=== PATIENT | female | born 1990 | race Caucasian/White ===

== ENCOUNTER 2019-01-05 09:51 | Emergency (ER) | payer OTHER ==
[2019-01-05] MEDS ORDERED: Bupivacaine 0.5% 10 ML SDV INJECT ONE (10:54)
[2019-01-05] MEDS ORDERED: Diphtheria,Pertussis(Acell),Tetanus Vaccine 0.5 ML Syringe IM ONE (10:56)
--- NOTE | 2019-01-05 11:01 | CR ---
Left hand: Four views of the left hand were obtained. Comparison: No previous study. Soft tissue injury is seen with distal left third finger. Comminuted fracture is noted within the tuft of the distal third finger with mild angulation and displacement. No proximal abnormality is seen within this finger. Other portions of the left hand exam appear within normal limits. Impression: 1. Fracture and soft tissue injury within the distal right third finger. Diagnostic code #3
--- NOTE | 2019-01-05 11:07 | EDM.PDOC ---
ED HPI GENERAL MEDICAL PROBLEM - General Chief Complaint: Laceration Stated Complaint: LT MIDDLE FINGER LAC Time Seen by Provider: 01/05/19 10:55 Source of Information: Reports: Patient History Limitations: Reports: No Limitations - History of Present Illness INITIAL COMMENTS - FREE TEXT/NARRATIVE: 20-year-old female presents to the ED for evaluation of work related injury to the distal aspect of her third finger. She reports that about 0630 hrs. this morning central standard time she had a heavy 400 pound weight drop on her left left hand. She suffered a injury to the distal aspect of her left third finger. She continued working until the end of her shift and then elected to come into the ED for care. She drove down from [facility]. He is right-hand dominant. Dodie when her last tetanus toxoid was updated. Onset: Today Onset Date: 01/05/19 Onset Time: 06:30 Duration: Hour(s): Location: Reports: Upper Extremity, Left (Distal aspect of the left third finger.) Quality: Reports: Ache, Throbbing Severity: Moderate Improves with: Reports: None Worsens with: Reports: None Context: Reports: Trauma (Blunt force trauma by heavyweight dropping on her gloved left hand.). Denies: Activity, Exercise, Lifting, Sick Contact Associated Symptoms: Reports: No Other Symptoms Treatments SHANK MAKER: Reports: Other (see below) Left Finger-Middle Pain Score (Numeric/FACES): 8 - Related Data Allergies Allergy/AdvReac Type Severity Reaction Status Date / Time No Known Allergies Allergy Verified 01/05/19 10:18 Home Meds: Home Meds Devyn. 1 tab PO DAILY 01/05/19 [History] Doxycycline [Vibramycin] 100 mg PO BID #24 cap 01/05/19 [Rx] lamoTRIgine [Lamictal] 200 mg PO DAILY 01/05/19 [History] Past Medical History Genitourinary History: Reports: UTI, Recurrent Psychiatric History: Reports: Bipolar (Controlled with Lamictal.) Social & Family History - Tobacco Use Smoking Status *Q: Current Every Day Smoker Years of Tobacco use: 10 Packs/Tins Daily: 0.5 - Caffeine Use Caffeine Use: Reports: Coffee - Recreational Drug Use Recreational Drug Use: No - Living Situation & Occupation Living situation: Reports: Single Occupation: Employed ED ROS GENERAL - Review of Systems Review Of Systems: See Below Constitutional: Reports: No Symptoms HEENT: Reports: No Symptoms Respiratory: Reports: No Symptoms Cardiovascular: Reports: No Symptoms Endocrine: Reports: No Symptoms GI/Abdominal: Reports: No Symptoms : Reports: No Symptoms Musculoskeletal: Reports: Other (Acute injury to the distal aspect of her left third finger.) Skin: Reports: No Symptoms ( See history of present illness) Neurological: Reports: No Symptoms Psychiatric: Reports: Mood Lability (Patient has a history of bipolar affective disorder well controlled on Lamictal 200 mg daily daily), Other Hematologic/Lymphatic: Reports: No Symptoms Immunologic: Reports: No Symptoms ED EXAM, SKIN/RASH Exam: See Below Exam Limited By: No Limitations General Appearance: Alert, WD/WN, No Apparent Distress Eye Exam: Bilateral Eye: Normal Inspection Respiratory/Chest: No Respiratory Distress, Lungs Clear, Normal Breath Sounds, Chest Non-Tender Cardiovascular: Normal Peripheral Pulses, Regular Rate, Rhythm, No Edema, No Gallop, No Murmur, No Rub Peripheral Pulses: 3+: Radial (L), Radial (R) Extremities: Other (Examination was limited to the left hand. Patient has an obvious injury to her left distal third finger. The nail has been avulsed from the nailbed and the finger is in a flexed position. Patient has no ability to fully extend the finger. She has full sensation in the tip of the finger both ulnar and radial aspects. There are no significant lacerations around the nailbed. There is blood on the other fingers but they are not injured.) Neurological: Alert, Oriented, CN II-XII Intact, Normal Cognition Psychiatric: Normal Affect, Normal Mood Skin: Warm, Dry, Intact, Normal Color, No Rash ED SKIN PROCEDURES - Laceration/Wound Repair Left Distal Digit - 3rd (Middle) Lac/Wound length In cm: 1.5 (Patient has a open fracture distal mid phalanx left third finger. The nail has been avulsed from the nailbed. The nail was reapproximated and sutured back into place to provide bone coverage and reapproximate bone fractures. 3 sutures were placed) Appearance: Subcutaneous, Clean Distal NVT: Neuro & Vascular Intact Anesthetic Type: Digital Local Anesthesia - Bupivicaine (Marcaine): 0.5% Plain Local Anesthetic Volume: 5cc Skin Prep: Providone-Iodine (Betadine), Saline Exploration/Debridement/Repair: Wound Explored, Minimal Debridement Closed with: Sutures Suture Size: 3-0 # of Sutures: 3 (3 sutures are placed through the fingernail to reapproximate the avulsed nail bed base. It also provides coverage for open fracture.) Suture Type: Nylon, Interrupted, Simple Course - Vital Signs Last Recorded V/S: Last Vital Signs Temp 36.7 C 01/05/19 10:12 Pulse 115 H 01/05/19 10:12 Resp 16 01/05/19 10:12 BP 130/88 01/05/19 10:12 Pulse Ox 100 01/05/19 10:12 - Orders/Labs/Meds Orders: Active Orders 24 hr Category Date Time Status Vaccines to be Administered [RC] PER UNIT ROUTINE Care 01/05/19 10:56 Active Meds: Medications Discontinued Medications Generic Name Dose Route Start Last Admin Trade Name Freq PRN Reason Stop Dose Admin Bupivacaine HCl 10 ml 01/05/19 10:54 01/05/19 11:05 Sensorcaine-Mpf 0.5% INJECT 01/05/19 10:55 10 ml ONETIME ONE Administration Diphtheria/Tetanus/Acell Pertussis 0.5 ml 01/05/19 10:56 01/05/19 11:04 Adacel IM 01/05/19 10:57 0.5 ml .ONCE ONE Administration - Radiology Interpretation Free Text/Narrative:: 28-year-old female presents to the ED with an acute injury to the distal aspect of her left third finger. 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 Reports a heavy weight came down and struck her gloved hand injuring the distal aspect of her third finger. She was able to work with the injury for a couple of hours but then it started to hurt bad and when she looked she recognized that the distal aspect of her finger has the nail avulsed and she is unable to fully extend the finger distally. She is unsure when her last tetanus toxoid was updated. Note injury occurred about 0630 hrs. central standard time this morning. Denies any other injuries. - Re-Assessments/Exams Free Text/Narrative Re-Assessment/Exam: 01/05/19 11:09 x-ray of the left third finger reveals a comminuted fracture of the distal phalanx. The nail has been avulsed from the nailbed making this an open fracture. Plan will be to perform digital block using 0.5% bupivacaine. The nailbed will then be reimplanted and then sutured in placed to reapproximate the fractured fragments. Patient will require splinting for the next 6 weeks after this to allow the bone to adequately heal. She will require oral antibiotics toxic and 100 mg twice daily for the next 12 days to prevent secondary bone infection. TDap will also be updated. 01/05/19 11:18 digital block done with 0.5% Marcaine. Patient tolerated procedure well. 01/05/19 11:44 3 sutures were placed in the distal aspect of the finger dorsally to reapproximate the nailbed in its appropriate position and has appropriate skin coverage. It also is realigning underlying comminuted fracture of the distal phalanx. Sutures will need to be removed in 12 days time Departure - Departure Time of Disposition: 11:46 Disposition: Home, Self-Care 01 Condition: Fair Clinical Impression: Finger fracture, left Qualifiers: Encounter type: initial encounter Finger: middle finger Fracture type: open Phalanx: distal Fracture alignment: displaced Qualified Code(s): S62.633B - Displaced fracture of distal phalanx of left middle finger, initial encounter for open fracture - Discharge Information *PRESCRIPTION DRUG MONITORING PROGRAM REVIEWED*: Not Applicable *COPY OF PRESCRIPTION DRUG MONITORING REPORT IN PATIENT HAYDEE: Not Applicable Prescriptions: Doxycycline [Vibramycin] 100 mg PO BID #24 cap Instructions: Finger Fracture, [id number] Referrals: Reena Mistry NP [Primary Care Provider] - Forms: ED Department Discharge Additional Instructions: Evaluation the emergency room today in regards to acute injury to the distal aspect of your left third finger that occurred in the workplace at 0630 hrs. this morning. Heavy tool was dropped from above and struck you on the distal aspect of your left third finger in a gloved hand. Evaluation reveals that the nail has been avulsed from the nailbed and x-rays confirm a comminuted fracture of the distal phalanx or the very end of the finger bone. Under digital block the nailbed was reapproximated to its anatomical position which will bring the fractured fragments back into alignment as well. Treatment is therefore to protect the area with a splint for the next 6 weeks until the bone can go back together. The sutures placed today need to be removed in 12 days time. Motrin 600 mg every 6 hours as needed for relief of pain elevate the hand is much as possible for the next 2-3 days to prevent further swelling and reduction of pain and throbbing in the finger. May apply ice to the finger for 20 minutes out of every 3 hours to reduce pain and swelling. You will need to take antibiotic doxycycline 100 mg twice daily for the next 12 days to prevent secondary wound infection since the bone was exposed to the air from the fracture. This is called an open fracture. Suggest follow-up with Dr. Diaz-- orthopedic surgeon on the second floor of the hospital. Please call [phone] to arrange an appointment in 12 days time to have the sutures removed and the fracture reviewed. May return to work if you can tolerate work with a large dog in place in the finger is splinted. Splint is only to be removed to believe the area. Then apply topical antibiotic such as bacitracin or Polysporin to the wound and cover with bandages to keep clean. Should be done until the sutures are removed a couple days after the stitches are removed. - My Orders Last 24 Hours: My Active Orders 01/05/19 10:56 Vaccines to be Administered [RC] PER UNIT ROUTINE - Assessment/Plan Last 24 Hours: My Active Orders 01/05/19 10:56 Vaccines to be Administered [RC] PER UNIT ROUTINE
== END 2019-01-05 12:36 | disposition home or self-care (01) ==
LOC: JD.ED 09:51
DX: S62.633B Displaced fracture of distal phalanx of left middle finger, initial encounter for open fracture (principal); F17.210 Nicotine dependence, cigarettes, uncomplicated; Z23 Encounter for immunization; X58.XXXA Exposure to other specified factors, initial encounter; Y99.0 Civilian activity done for income or pay
CPT/HCPCS: 11760; 73130; 90471; 90700; 99283; J3490; 12001; 12031